=== PATIENT | female | born 1955 | race Caucasian/White ===

== ENCOUNTER 2020-04-09 20:46 | Emergency (ER) | payer MEDICARE ==
[~2020-04-09] VITALS: Ht 165.1 cm; Wt 73.1 kg
--- NOTE | 2020-04-10 00:02 | NUR ---
PT IN ROOM, ATTACHED TO MONITORS. ERP AT BEDSIDE FOR EVAL. CALL LIGHT IN REACH.
[2020-04-10 00:37] LABS: ALBUMIN 3.5 g/dL (3.4-5.0); ANION GAP 5 mmol/L (5-15); CALCIUM 9.3 mg/dL (8.5-10.1); CHLORIDE 109 mmol/L (98-107); CREATININE 0.78 mg/dL (0.55-1.02); T4 (THYROXINE) 13.5 mcg/dL (4.8-13.9)
[2020-04-10 00:41] LABS: TROPONIN I < 0.015 ng/mL (0.000-0.045)
[2020-04-10 00:43] LABS: BASOPHILS # (AUTO) 0.02 x10^3/uL (0-0.1); BASOPHILS % (AUTO) 0 % (0-1); EOSINOPHILS # (AUTO) 0.12 x10^3/uL (0-0.4); EOSINOPHILS % (AUTO) 2 % (1-7); LYMPHOCYTES % (AUTO) 36 % (22-44); MD NO; MEAN CORPUSCULAR HEMOGLOBIN 28.6 pg (27.0-34.8); MEAN CORPUSCULAR HGB CONC 32.7 g/dL (32.4-35.8); MEAN CORPUSCULAR VOLUME 87.5 fL (80-100); MEAN PLATELET VOLUME 7.7 fL (7.4-10.4); MONOCYTES # (AUTO) 0.45 x10^3/uL (0.2-0.8); MONOCYTES % (AUTO) 7 % (2-9); NEUTROPHILS # (AUTO) 3.54 x10^3/uL (1.8-6.8); NEUTROPHILS % (AUTO) 55 % (42-75); PLATELET COUNT 446 x10^3/uL (130-400); RED BLOOD COUNT 4.69 x10^6/uL (3.82-5.3); RED CELL DISTRIBUTION WIDTH 14.1 % (9.6-15.2)
--- NOTE | 2020-04-10 00:50 | NUR ---
TECH AT BEDSIDE FOR REPEAT EKG. PT MEDICATED PER MAR. DENIES ANY NEEDS AT THIS TIME, CALL LIGHT IN REACH.
[2020-04-10 01:43] VITALS: BP 146/75
== END 2020-04-10 01:54 | disposition home or self-care (01) ==
LOC: ED 04-10 01:01
DX: R00.2 Palpitations (principal); R42 Dizziness and giddiness; M54.2 Cervicalgia; R11.0 Nausea; R51 Headache; R06.00 Dyspnea, unspecified; R07.89 Other chest pain; E03.9 Hypothyroidism, unspecified; I44.4 Left anterior fascicular block; Z90.710 Acquired absence of both cervix and uterus
CPT/HCPCS: 36415; 70450; 80048; 82040; 83880; 84436; 84443; 84484; 85025; 93005; 99285; Q0177